=== PATIENT | male | born 1955 ===

== ENCOUNTER 2020-09-20 11:23 | Emergency (ER) | payer BC, MEDICARE ==
[2020-09-20 11:44] VITALS: BP 138/104; PULSE 115
--- NOTE | 2020-09-20 12:15 | EDM.PDOC ---
ED HPI GENERAL MEDICAL PROBLEM - General Stated Complaint: LEFT LEG IN PAIN Time Seen by Provider: 09/20/20 11:30 Source of Information: Reports: Patient History Limitations: Reports: No Limitations - History of Present Illness INITIAL COMMENTS - FREE TEXT/NARRATIVE: pt arrives via POV stating right leg pain and tingling after sitting cross legged in a recliner. pt provides social history of greater than 50 pack/year smoking history with elevated blood pressures intermittently. also history of bilateral claudication with L>R while during increased activity including walking up and down stairs, pulling or carrying heavy loads. pt denies chest pain, SOB, fever, cough, dizzyness, unilateral weakness, difficulty with speech. Onset: Today, Sudden Right Ankle Pain Score (Numeric/FACES): 5 - Related Data Allergies Allergy/AdvReac Type Severity Reaction Status Date / Time No Known Allergies Allergy Verified 09/20/20 11:44 Social & Family History - Tobacco Use Tobacco Use Status *Q: Current Every Day Tobacco User Years of Tobacco use: 50 Packs/Tins Daily: 1 Used Tobacco, but Quit: No Second Hand Smoke Exposure: No - Caffeine Use Caffeine Use: Reports: Coffee, Soda - Recreational Drug Use Recreational Drug Use: No ED ROS GENERAL - Review of Systems Review Of Systems: Comprehensive ROS is negative, except as noted in HPI. ED EXAM, GENERAL - Physical Exam Exam: See Below Exam Limited By: No Limitations General Appearance: Alert, WD/WN, No Apparent Distress Eye Exam: Bilateral Eye: EOMI, PERRL, Vision Changes Respiratory/Chest: No Respiratory Distress, Lungs Clear, Normal Breath Sounds, No Accessory Muscle Use Cardiovascular: Normal Peripheral Pulses, Regular Rate, Rhythm, No Edema, No Murmur, Other (varicose veins bilateral lower extremities) Peripheral Pulses: 2+: Radial (L), Radial (R), Posterior Tibial (L), Posterior Tibial (R) Extremities: Normal Inspection, Normal Range of Motion, Non-Tender, No Pedal Edema, Normal Capillary Refill, Other (negative homans sign, no palpable chords, swelling or erythema of lower leg.) Neurological: Alert, Oriented, CN II-XII Intact, Normal Cognition, Normal Gait, No Motor/Sensory Deficits Skin Exam: Warm, Dry, Intact Course - Vital Signs Last Recorded V/S: Last Vital Signs Temp 97.3 F 09/20/20 11:36 Pulse 115 H 07/09/21 11:36 Resp 16 09/20/20 11:36 BP 138/104 H 09/20/20 11:36 Pulse Ox 100 09/20/20 11:36 - Radiology Interpretation Free Text/Narrative:: bedside US shows compressibility without filling defects of right leg saphenous, popliteal, and posterior tibial veins from proximal knee through distal gastrocnemius muscle. - Re-Assessments/Exams Free Text/Narrative Re-Assessment/Exam: 09/20/20 12:10 symptoms of right lower leg "numbness" and "stiffness" have completely resolved in the ED. blood pressures reducing to 140s/90s Departure - Departure Time of Disposition: 12:25 Disposition: Home, Self-Care 01 Condition: Good Clinical Impression: Claudication of right lower extremity - Discharge Information *PRESCRIPTION DRUG MONITORING PROGRAM REVIEWED*: Not Applicable *COPY OF PRESCRIPTION DRUG MONITORING REPORT IN PATIENT YUE: Not Applicable Instructions: Intermittent Claudication Additional Instructions: continue walking at good pace. rest if pain occurs. follow up with PCP regarding blood pressure. no more crossing legs. return with stroke symptoms as discussed. Sepsis Event Note (ED) - Evaluation Sepsis Screening Result: No Definite Risk - Focused Exam Vital Signs: Vital Signs Temp Pulse Resp BP Pulse Ox 09/20/20 11:36 97.3 F 115 H 16 138/104 H 100 - Problem List & Annotations (1) Claudication of right lower extremity SNOMED Code(s): 63708330, 113963683 Code(s): I73.9 - PERIPHERAL VASCULAR DISEASE, UNSPECIFIED Status: Acute - Problem List Review Problem List Initiated/Reviewed/Updated: Yes - Assessment/Plan Assessment:: claudication: continue with steady activity such as walking please stop smoking HOLLI, this will help greatly. no more crossing legs, this impedes blood flow and increases symptoms, as you know.
== END 2020-09-20 12:14 | disposition home or self-care (01) ==
LOC: LB.ED 11:23
DX: I73.9 Peripheral vascular disease, unspecified (principal); Z72.0 Tobacco use
CPT/HCPCS: 99284-25

== ENCOUNTER 2023-02-11 08:01 | Day surgery (SDC) | payer MEDICARE ==
[~2023-02-11 08:01] MED LIST: Metoclopramide 10 MG/2 ML SDV IV PRN
[2023-02-11] MEDS: Sodium Chloride 0.9% 1,000 ML IV SCH (08:31)
[2023-02-11] MEDS ORDERED: ePHEDrine 50 MG/ML SDV ONE (09:30)
[2023-02-11] MEDS ORDERED: Propofol 200 MG/20 ML SDV ONE (09:30)
[2023-02-11 09:58] VITALS: BP 99/67; PULSE 85
== END 2023-02-11 10:40 | disposition home or self-care (01) ==
LOC: LB.SDS 08:01
PROVIDERS: ATTEND Surgery
DX: Z12.11 Encounter for screening for malignant neoplasm of colon (principal); D12.5 Benign neoplasm of sigmoid colon; K57.30 Diverticulosis of large intestine without perforation or abscess without bleeding; F17.210 Nicotine dependence, cigarettes, uncomplicated; Z79.899 Other long term (current) drug therapy
CPT/HCPCS: J2704; J7030